=== PATIENT | male | born 1985 | race Hispanic/Latino ===

== ENCOUNTER 2017-02-24 10:59 | Emergency (ER) | payer SELFPAY ==
[~2017-02-24] VITALS: Ht 160 cm; Wt 80.0 kg
[~2017-02-24 10:59] MED LIST: MILK OF MAG30 ML/UDC PO; MOTRIN800 MG PO
[2017-02-24] MEDS ORDERED: FLEXERIL PO (11:22)
[2017-02-24] MEDS ORDERED: MOTRIN800 MG PO (11:22)
[2017-02-24 11:57] VITALS: BP 151/84
== END 2017-02-24 11:57 | disposition home or self-care (01) | DRG 552 ==
LOC: ED 10:59
DX: M43.6 Torticollis (principal)

== ENCOUNTER 2017-02-26 13:14 | Emergency (ER) | payer SELFPAY ==
[~2017-02-26] VITALS: Ht 160 cm; Wt 75.0 kg
[~2017-02-26 13:14] MED LIST changes: +FLEXERIL PO
[2017-02-26] MEDS ORDERED: CEPHALEXIN500 M1 PO (14:35)
[2017-02-26] MEDS ORDERED: MUPIROCIN2 % EX (14:35)
[2017-02-26 14:56] VITALS: BP 139/99
== END 2017-02-26 15:08 | disposition home or self-care (01) | DRG 605 ==
LOC: ED 13:14
PROC: 0HQLXZZ Repair Left Lower Leg Skin, External Approach (ICD-10-PCS; principal; 2017-02-26)
DX: S81.012A Laceration without foreign body, left knee, initial encounter (principal); W29.3XXA Contact with powered garden and outdoor hand tools and machinery, initial encounter; Y93.H2 Activity, gardening and landscaping; Y92.007 Garden or yard of unspecified non-institutional (private) residence as the place of occurrence of the external cause

== ENCOUNTER 2017-03-05 07:47 | Emergency (ER) | payer SELFPAY ==
[~2017-03-05] VITALS: Ht 160 cm; Wt 80.0 kg
[~2017-03-05 07:47] MED LIST changes: +CEPHALEXIN500 M1 PO; +MUPIROCIN2 % EX
[2017-03-05 08:26] VITALS: BP 143/95
== END 2017-03-05 08:26 | disposition home or self-care (01) | DRG 950 ==
LOC: ED 07:47
DX: S81.012D Laceration without foreign body, left knee, subsequent encounter (principal); X58.XXXD Exposure to other specified factors, subsequent encounter

== ENCOUNTER 2017-03-09 10:31 | Emergency (ER) | payer SELFPAY ==
[~2017-03-09] VITALS: Ht 160 cm; Wt 81.0 kg
[2017-03-09 11:36] VITALS: BP 131/87
== END 2017-03-09 11:45 | disposition home or self-care (01) | DRG 950 ==
LOC: ED 10:31
DX: S81.012D Laceration without foreign body, left knee, subsequent encounter (principal); X58.XXXD Exposure to other specified factors, subsequent encounter

== ENCOUNTER 2018-04-06 10:56 | Emergency (ER) | payer SELFPAY ==
[~2018-04-06] VITALS: Ht 160 cm; Wt 86.4 kg
[2018-04-06] MEDS ORDERED: METOPROL TAR25 MG PO (11:17)
[2018-04-06] MEDS ORDERED: FLEXERIL PO (14:12)
[2018-04-06] MEDS ORDERED: IBUPROFEN600 MG PO (14:12)
[2018-04-06 14:18] VITALS: BP 145/92
== END 2018-04-06 14:23 | disposition home or self-care (01) | DRG 563 ==
LOC: ED 10:56
DX: S46.811A Strain of other muscles, fascia and tendons at shoulder and upper arm level, right arm, initial encounter (principal); S10.81XA Abrasion of other specified part of neck, initial encounter; S00.211A Abrasion of right eyelid and periocular area, initial encounter; I10 Essential (primary) hypertension; E78.5 Hyperlipidemia, unspecified; V43.52XA Car driver injured in collision with other type car in traffic accident, initial encounter